=== PATIENT | female | born 1945 | race Caucasian/White ===

== ENCOUNTER 2021-10-10 15:15 | Observation (INO) | payer MEDICARE, OTHER ==
[2021-10-10 15:30] VITALS: BMI 33.5
[2021-10-10 17:32] LABS: BASO % 0.4 % (0-2.0); HEMATOCRIT 34.2 % (32.4-45.2); HEMOGLOBIN 11.1 GM/dL (10.7-15.3); LYMPH % 26.7 % (8-40); MCH 32.4 pg (25.7-33.7); MCHC 32.5 g/dl (32.0-36.0); MEAN CELL VOLUME 99.6 fl (80-96); MEAN PLT VOLUME 8.8 fl (7.5-11.1); MONO % 10.3 % (3.8-10.2); NEUT % 60.6 % (42.8-82.8); PLATELET COUNT 284 10^3/uL (134-434); RBC 3.43 M/mm3 (3.60-5.2); RDW 14.2 % (11.6-15.6); WHITE BLOOD COUNT 5.3 K/mm3 (4.0-10.0)
[2021-10-10 17:52] LABS: CALCIUM 8.8 mg/dL (8.5-10.1)
[2021-10-10 17:53] LABS: ALBUMIN 3.6 g/dl (3.4-5.0); BLOOD UREA NITROGEN 18.5 mg/dL (7-18); INR 0.97 (0.83-1.09); PROTHROMBIN TIME (PATIENT) 11.1 SEC (9.7-13.0)
[2021-10-10 17:56] LABS: ACTIVATED PTT 28.3 SECONDS (25.2-36.5); CREATININE 0.5 mg/dL (0.55-1.3)
[2021-10-10 17:58] LABS: BILIRUBIN,TOTAL 0.2 mg/dL (0.2-1); TOT PROT 6.6 g/dl (6.4-8.2)
[2021-10-10 20:30] VITALS: RESP 18
[2021-10-11] MEDS ORDERED: ACETAMINOPHEN 325 MG TABLET (FP) PO PRN (06:49)
[2021-10-11 07:03] VITALS: TEMP 98.2
[2021-10-11 08:11] LABS: BASO % 0.5 % (0-2.0); HEMATOCRIT 35.7 % (32.4-45.2); HEMOGLOBIN 12.1 GM/dL (10.7-15.3); LYMPH % 26.8 % (8-40); MCH 33.6 pg (25.7-33.7); MCHC 33.9 g/dl (32.0-36.0); MONO % 10.3 % (3.8-10.2); NEUT % 59.4 % (42.8-82.8); PLATELET COUNT 216 10^3/uL (134-434); RBC 3.61 M/mm3 (3.60-5.2); RDW 14.4 % (11.6-15.6); WHITE BLOOD COUNT 4.3 K/mm3 (4.0-10.0)
[2021-10-11 08:32] LABS: ALBUMIN 3.3 g/dl (3.4-5.0)
[2021-10-11 08:35] LABS: CREATININE 0.4 mg/dL (0.55-1.3)
[2021-10-11 08:37] LABS: BILIRUBIN,TOTAL 0.4 mg/dL (0.2-1); TOT PROT 6.4 g/dl (6.4-8.2)
[2021-10-11] MEDS ORDERED: ASPIRIN 81 MG CHEWABLE TABLETS ONE (09:59)
[2021-10-11] MEDS ORDERED: PANTOPRAZOLE 40 MG TABLET PO ONE (09:59)
[2021-10-11] MEDS ORDERED: ASPIRIN 81 MG CHEWABLE TABLETS PO SCH (10:00)
[2021-10-11] MEDS ORDERED: PANTOPRAZOLE 40 MG TABLET PO SCH (10:00)
[2021-10-11 10:20] VITALS: BP 122/68; PULSE 75
== END 2021-10-11 10:35 | disposition home or self-care (01) ==
LOC: JER 15:15 → JERBED 18:45
PROVIDERS: ADMIT Internal Medicine; ATTEND Family Medicine
DX: R07.9 Chest pain, unspecified (principal); I10 Essential (primary) hypertension; E78.5 Hyperlipidemia, unspecified; K21.9 Gastro-esophageal reflux disease without esophagitis; M19.90 Unspecified osteoarthritis, unspecified site; Z86.16 Personal history of COVID-19; Z29.8 Encounter for other specified prophylactic measures
CPT/HCPCS: 36415; 71045-TC-FY; 80053; 80061; 84484; 85025; 85610; 85730; 93005; 93010; 99285-25; C9803-CS; G0378; U0003; U0005

== ENCOUNTER 2022-09-12 16:15 | Emergency (ER) | payer MEDICARE, OTHER ==
[2022-09-12 16:21] VITALS: BMI 27.0
[2022-09-12] MEDS ORDERED: ACETAMINOPHEN 1000 MG/100 ML BAG IVPB ONE (17:32)
[2022-09-12 18:02] LABS: BASO % 0.3 % (0-2.0); EOS % 2.1 % (0-4.5); HEMATOCRIT 33.7 % (32.4-45.2); HEMOGLOBIN 11.3 GM/dL (10.7-15.3); LYMPH % 22.7 % (8-40); MCH 32.2 pg (25.7-33.7); MCHC 33.5 g/dl (32.0-36.0); MEAN CELL VOLUME 96.3 fl (80-96); MEAN PLT VOLUME 7.9 fl (7.5-11.1); NEUT % 65.9 % (42.8-82.8); PLATELET COUNT 261 10^3/uL (134-434); RDW 15.5 % (11.6-15.6); WHITE BLOOD COUNT 5.2 K/mm3 (4.0-10.0)
[2022-09-12 18:20] LABS: POTASSIUM 3.9 mmol/L (3.5-5.1)
[2022-09-12 18:23] LABS: ALBUMIN 3.3 g/dl (3.4-5.0); CALCIUM 9.1 mg/dL (8.5-10.1)
[2022-09-12 18:26] LABS: CREATININE 0.6 mg/dL (0.55-1.3)
[2022-09-12 18:28] LABS: BILIRUBIN,TOTAL 0.2 mg/dL (0.2-1); TOT PROT 6.6 g/dl (6.4-8.2)
[2022-09-12 21:02] VITALS: BP 108/56; PULSE 61; RESP 14; TEMP 98.1
== END 2022-09-12 21:51 | disposition home or self-care (01) ==
LOC: JER 16:15
DX: M54.9 Dorsalgia, unspecified (principal); R07.89 Other chest pain; Z20.822 Contact with and (suspected) exposure to COVID-19
CPT/HCPCS: 0241U-QW; 36415; 71046-TC-FY; 80053; 82550; 83690; 84484; 85025; 93005; 93010; 99285-25

== ENCOUNTER 2023-10-13 19:04 | Emergency (ER) | payer MEDICARE, OTHER ==
[2023-10-13 19:13] VITALS: BP 124/71; PULSE 69; RESP 18; TEMP 98.4; BMI 29.2
== END 2023-10-13 20:36 | disposition home or self-care (01) ==
LOC: JERFT 19:04 → JER 19:04 → JERFT 20:36
DX: M79.641 Pain in right hand (principal)
CPT/HCPCS: 73130-TC-RT-FY; 99283-25